=== PATIENT | female | born 1955 | race Two or more races ===

== ENCOUNTER 2020-11-14 07:00 | Inpatient (IN) | payer OTHER ==
[~2020-11-14] VITALS: Ht 157.5 cm; Wt 112.5 kg
[2020-11-14] MEDS ORDERED: NORVASC5 MG PO (08:29)
[2020-11-14] MEDS ORDERED: COZAAR100 MG PO (08:29)
[2020-11-14] MEDS ORDERED: GABAPENTIN400 MG PO (08:30)
[2020-11-14] MEDS ORDERED: DITROPAN XL5 MG PO (11:28)
[2020-11-19] MEDS ORDERED: MIRALAX510 GM (08:04)
== END 2020-11-21 13:58 | DRG 470 ==
LOC: O/R 11-19 05:28 → SURG 11-19 05:28 → SURH 11-19 07:00 → SURG 11-19 11:46
PROVIDERS: ADMIT Orthopaedic Surgery; ATTEND Orthopaedic Surgery
PROC: 0SRC0J9 Replacement of Right Knee Joint with Synthetic Substitute, Cemented, Open Approach (ICD-10-PCS; principal; 2020-11-19 10:30)
DX: M17.11 Unilateral primary osteoarthritis, right knee (principal); D62 Acute posthemorrhagic anemia; I10 Essential (primary) hypertension; G62.89 Other specified polyneuropathies

== ENCOUNTER → 2022-07-17 | Day surgery (SDC) | payer OTHER ==
[~2022-07-17] VITALS: Ht 162.6 cm; Wt 124.3 kg
[~2022-07-17] MED LIST: COZAAR100 MG PO; DITROPAN XL5 MG PO; GABAPENTIN400 MG PO; MIRALAX510 GM; NORVASC5 MG PO
== END | disposition home or self-care (01) ==
LOC: ADM 07-15 15:00 → CIR.AMB 07:00
PROVIDERS: ATTEND Surgery
DX: N60.91 Unspecified benign mammary dysplasia of right breast (principal); N60.21 Fibroadenosis of right breast; R92.0 Mammographic microcalcification found on diagnostic imaging of breast; Z20.822 Contact with and (suspected) exposure to COVID-19; Z88.0 Allergy status to penicillin; Z88.2 Allergy status to sulfonamides; Z91.041 Radiographic dye allergy status; Z91.040 Latex allergy status; Z88.6 Allergy status to analgesic agent; I10 Essential (primary) hypertension
CPT/HCPCS: 19301; 19281; L8699

== ENCOUNTER 2023-03-15 07:30 | Inpatient (IN) | payer OTHER ==
[~2023-03-15] VITALS: Ht 99.1 cm; Wt 120.2 kg
[2023-03-15 11:27] LABS: URINE APPEARANCE Clear; URINE BILIRRUBIN Negative (NEGATIVE); URINE BLOOD Negative; URINE COLOR Yellow; URINE GLUCOSE Negative (NEGATIVE); URINE LEUKOCYTE Negative; URINE NITRATE Negative; URINE PROTEIN Negative (NEGATIVE); URINE UROBILINOGEN 0.2 E.U./dl
[2023-03-15 11:32] LABS: URINE EPITHELIAL CELLS 1.6 uL (0.0-38.8)
[2023-03-15 11:38] LABS: URINE RBC 1.7 uL (0.0-20.8); URINE WBC 0.4 uL (0.0-23.2)
[2023-03-15 12:06] LABS: HEMATOCRIT 36.8 % (36.0-45.00); HEMOGLOBIN 12.5 g/dL (12.0-15.00); MEAN CELL VOLUME 89.1 fL (80.00-100.00); MEAN CORPUSCULAR HEMOGLOBIN 30.3 pg (27.00-32.0); PLATELET COUNT 295 K/uL (150-450); RED BLOOD COUNT 4.13 M/uL (4.00-6.00)
[2023-03-15 12:07] LABS: RED CELL DISTRIBUTION WIDTH 17.9 % (11.5-14.5)
[2023-03-15 12:33] LABS: ALBUMIN 3.8 gm/dL (3.4-5.0); BILIRUBIN TOTAL 0.39 mg/dL (0.3-1.2); CALCIUM 9.6 mg/dL (8.5-10.1); CREATININE SERUM 0.67 mg/dL (0.55-1.02); GFR 87.79; POTASSIUM 4.51 mEq/L (3.5-5.1); TOTAL PROTEIN 7.8 gm/dL (6.4-8.2)
[2023-03-15 12:36] LABS: INR 1.01; PARTIAL THROMBOPLASTIN TIME 30.6 SECONDS (22.0-34.0); PROTHROMBIN TIME 10.6 SECONDS (9.0-11.5)
[2023-03-24 06:50] LABS: HEMOGLOBIN 11.2 g/dL (12.0-15.00); MEAN CELL VOLUME 89.3 fL (80.00-100.00); MEAN CORPUSCULAR HEMOGLOBIN 30.3 pg (27.00-32.0); MEAN CORPUSCULAR HGB CONC 33.9 g/dl (32.0-36.0); PLATELET COUNT 215 K/uL (150-450); RED CELL DISTRIBUTION WIDTH 16.7 % (11.5-14.5)
[2023-03-24] MEDS ORDERED: TAMOXIFEN CITRA20 MG (13:02)
[2023-03-25 07:31] LABS: HEMATOCRIT 32.2 % (36.0-45.00); HEMOGLOBIN 10.6 g/dL (12.0-15.00); MEAN CELL VOLUME 90.8 fL (80.00-100.00); PLATELET COUNT 200 K/uL (150-450); RED BLOOD COUNT 3.55 M/uL (4.00-6.00); RED CELL DISTRIBUTION WIDTH 16.5 % (11.5-14.5)
== END 2023-03-25 18:42 | DRG 470 ==
LOC: SURH 07:30 → O/R 03-23 05:23 → SURH 03-23 07:30
PROVIDERS: ADMIT Orthopaedic Surgery; ATTEND Orthopaedic Surgery
PROC: 0SRD0JZ Replacement of Left Knee Joint with Synthetic Substitute, Open Approach (ICD-10-PCS; principal; 2023-03-23 10:00)
DX: M17.12 Unilateral primary osteoarthritis, left knee (principal); M85.662 Other cyst of bone, left lower leg